=== PATIENT | male | born 1990 | race Caucasian/White ===

== ENCOUNTER 2016-10-25 22:49 | Emergency (ER) | payer MEDICAID | END 2016-10-26 02:30 | disposition home or self-care (01) | LOC: D.ER 22:49 | DX: S93.402A Sprain of unspecified ligament of left ankle, initial encounter (principal); X58.XXXA Exposure to other specified factors, initial encounter; Y93.89 Activity, other specified; Y92.89 Other specified places as the place of occurrence of the external cause; M79.672 Pain in left foot ==

== ENCOUNTER 2017-11-19 20:45 | Emergency (ER) | payer MEDICAID ==
[~2017-11-19] VITALS: Ht 177.8 cm; Wt 59.1 kg
[2017-11-19 20:51] VITALS: Ht 177.8 cm; Wt 59.1 kg
[2017-11-19] MEDS ORDERED: TOPAMAX50 MG (20:52)
[2017-11-19] MEDS ORDERED: IMITREX50 MG (20:52)
[2017-11-19 23:07] VITALS: BP 122/73
== END 2017-11-19 23:08 | disposition home or self-care (01) ==
LOC: D.ER 20:45
DX: L42 Pityriasis rosea (principal); Z86.73 Personal history of transient ischemic attack (TIA), and cerebral infarction without residual deficits

== ENCOUNTER 2017-12-25 09:47 | Emergency (ER) | payer MEDICARE, MEDICAID ==
[~2017-12-25] VITALS: Ht 177.8 cm; Wt 72.6 kg
[~2017-12-25 09:47] MED LIST: IMITREX50 MG; TOPAMAX50 MG
[2017-12-25 09:53] VITALS: Ht 177.8 cm; Wt 72.6 kg
[2017-12-25] MEDS ORDERED: CLEOCIN HCL300 MG PO (11:27)
[2017-12-25] MEDS ORDERED: TORADOL10 MG PO (11:27)
[2017-12-25 12:24] VITALS: BP 121/093
[2017-12-25] MEDS ORDERED: TYLENOL W/CODEI1 TAB PO (20:08)
[2017-12-29 13:49] VITALS: Ht 177.8 cm; Wt 72.6 kg
== END 2017-12-25 12:25 | disposition home or self-care (01) ==
LOC: D.ER 09:47
DX: K04.7 Periapical abscess without sinus (principal); K02.9 Dental caries, unspecified; Z86.73 Personal history of transient ischemic attack (TIA), and cerebral infarction without residual deficits; R22.9 Localized swelling, mass and lump, unspecified

== ENCOUNTER 2017-12-25 19:04 | Emergency (ER) | payer MEDICARE, MEDICAID ==
[~2017-12-25] VITALS: Ht 177.8 cm; Wt 72.7 kg
[~2017-12-25 19:04] MED LIST changes: +CLEOCIN HCL300 MG PO; +TORADOL10 MG PO
[2017-12-25 19:08] VITALS: Ht 177.8 cm; Wt 72.7 kg
[2017-12-25] MEDS ORDERED: TYLENOL W/CODEI1 TAB PO (20:08)
[2017-12-25 20:20] VITALS: BP 144/92
[2017-12-29 13:49] VITALS: Ht 177.8 cm; Wt 72.7 kg
== END 2017-12-25 20:20 | disposition home or self-care (01) ==
LOC: D.ER 19:04
DX: K04.7 Periapical abscess without sinus (principal); Z86.73 Personal history of transient ischemic attack (TIA), and cerebral infarction without residual deficits

== ENCOUNTER 2017-12-27 11:03 | Inpatient (IN) | payer MEDICARE, MEDICAID ==
[~2017-12-27] VITALS: Ht 177.8 cm; Wt 73.9 kg
--- NOTE | ~2017-12-27 | MORECARE ---
CASE MANAGEMENT DISCHARGE SUMMARY PATIENT: MERRICK ALLEN UNIT: [id number] ADM DATE: 12/27/17 AGE: 27 : 89 SEX: M ROOM/BED: D.1213 AUTHOR: SHERRIE ECHEVARRIA PHYSICIAN: REFERRING PHYSICIAN: HAIDER GODINEZ MD DATE OF SERVICE: 12/29/17 Discharge Plan Patient Name: MERRICK ALLEN Facility: [facility]:[place] : 1990 Planned Disposition: Home Anticipated Discharge Date: Discharge Date: 12/29/2017 Expected LOS: Initial Reviewer: [id number] Initial Review Date: 12/27/2017 Generated: 12/29/17 4:31 pm Comments DCP- Discharge Planning Updated by [email or web address]: Rosalva Marcus on 12/29/17 11:[address] Patient Name: MERRICK ALLEN Admission Status: ER Accout number: [id number] Admission Date: 12-27-2017 : 1990 Admission Diagnosis:PERIAPICAL ABSCESS WITHOUT SINUS Attending: HAIDER GODINEZ Current LOS: 2 Anticipated DC Date: Planned Disposition: Home Primary Insurance: [employer] ADV Discharge Planning Comments: CM met with patient at bedside. Patient alone at this time his mother is at work. Patient plans on returning to his home with his mother. IMM explained and signed 12/29/17 @1157 Patient denies any discharge needs at this time. CM will continue to follow and assist as needed with discharge planning / needs. Tie Mill Operator: Rosalva Marcus Coverage Notice Reviewer: [id number] - Rosalva Marcus Notice Issued Date-Time: 12/29/2017 11:57 Notice Type: IM Discharge Notice Notice Delivered To: Patient Relationship to Patient: Self Casserole Preparer Name: Delivery Method: HAND - Hand Delivered Sharlene Days: Prior Verbal Notification: Recipient Understood Notice: Yes Recipient Signature: Yes Med Rec Note Co-signed by Attending: Coverage Notice Comment: Last DP export: 12/29/17 11:10 a Patient Name: MERRICK ALLEN Page [id number] at 1531 All edits/amendments must be made on the electronic document DICTATION DATE: 12/29/17 1530 PLATE DRILLER: DM 12/29/17 1530 RPT#: [id number] DC DATE:12/29/17 STATUS: DIS IN [facility] [address] [place] [address] END OF REPORT
--- NOTE | ~2017-12-27 | MORECARE ---
CASE MANAGEMENT DISCHARGE SUMMARY PATIENT: MERRICK ALLEN UNIT: [id number] ADM DATE: 12/27/17 AGE: 27 : 90 SEX: M ROOM/BED: D.1213 AUTHOR: SHERRIE ECHEVARRIA PHYSICIAN: REFERRING PHYSICIAN: HAIDER GODINEZ MD DATE OF SERVICE: 12/29/17 Discharge Plan Patient Name: MERRICK ALLEN Facility: [facility]:[place] : 1990 Planned Disposition: Home Anticipated Discharge Date: Discharge Date: 12/29/2017 Expected LOS: Initial Reviewer: [email or web address] Initial Review Date: 12/27/2017 Generated: 12/29/17 4:40 pm Comments DCP- Discharge Planning Updated by [email or web address]: Rosalva Marcus on 12/29/17 11:[address] Patient Name: MERRICK ALLEN Admission Status: ER Accout number: [id number] Admission Date: 12-27-2017 : 1990 Admission Diagnosis:PERIAPICAL ABSCESS WITHOUT SINUS Attending: HAIDER GODINEZ Current LOS: 2 Anticipated DC Date: Planned Disposition: Home Primary Insurance: [employer] ADV Discharge Planning Comments: CM met with patient at bedside. Patient alone at this time his mother is at work. Patient plans on returning to his home with his mother. IMM explained and signed 12/29/17 @1157 Patient denies any discharge needs at this time. CM will continue to follow and assist as needed with discharge planning / needs. Manager Route: Rosalva Marcus Coverage Notice Reviewer: [id number] - Rosalva Marcus Notice Issued Date-Time: 12/29/2017 11:57 Notice Type: IM Discharge Notice Notice Delivered To: Patient Relationship to Patient: Self Java Software Name: Delivery Method: HAND - Hand Delivered Sharlene Days: Prior Verbal Notification: Recipient Understood Notice: Yes Recipient Signature: Yes Med Rec Note Co-signed by Attending: Coverage Notice Comment: Last DP export: 12/29/17 11:10 a Patient Name: MERRICK ALLEN Page [id number] at 1540 All edits/amendments must be made on the electronic document DICTATION DATE: 12/29/17 1540 EDUCATIONAL ADMINISTRATION TEACHER: DM 12/29/17 1540 RPT#: [id number] DC DATE:12/29/17 STATUS: DIS IN [facility] [address] [place] [address] END OF REPORT
--- NOTE | ~2017-12-27 | MORECARE ---
CASE MANAGEMENT DISCHARGE SUMMARY PATIENT: MERRICK ALLEN UNIT: [id number] ADM DATE: 12/27/17 AGE: 27 : 90 SEX: M ROOM/BED: D.1213 AUTHOR: SHERRIE ECHEVARRIA PHYSICIAN: REFERRING PHYSICIAN: HAIDER GODINEZ MD DATE OF SERVICE: 12/29/17 Discharge Plan Patient Name: MERRICK ALLEN Facility: [facility]:[place] : 1990 Planned Disposition: Home Anticipated Discharge Date: Discharge Date: Expected LOS: Initial Reviewer: [email or web address] Initial Review Date: 12/27/2017 Generated: 12/29/17 1:10 pm Comments DCP- Discharge Planning Updated by [id number]: Rosalva Marcus on 12/29/17 11:[address] Patient Name: MERRICK ALLEN Admission Status: ER Accout number: [id number] Admission Date: 12-27-2017 : 1990 Admission Diagnosis:PERIAPICAL ABSCESS WITHOUT SINUS Attending: HAIDER GODINEZ Current LOS: 2 Anticipated DC Date: Planned Disposition: Home Primary Insurance: [employer] ADV Discharge Planning Comments: CM met with patient at bedside. Patient alone at this time his mother is at work. Patient plans on returning to his home with his mother. IMM explained and signed 12/29/17 @1157 Patient denies any discharge needs at this time. CM will continue to follow and assist as needed with discharge planning / needs. Trimmer And Reinforcer: Rosalva Marcus Coverage Notice Reviewer: [id number] - Rosalva Marcus Notice Issued Date-Time: 12/29/2017 11:57 Notice Type: IM Discharge Notice Notice Delivered To: Patient Relationship to Patient: Self Tablet Making Machine Operator Helper Name: Delivery Method: HAND - Hand Delivered Sharlene Days: Prior Verbal Notification: Recipient Understood Notice: Yes Recipient Signature: Yes Med Rec Note Co-signed by Attending: Coverage Notice Comment: Patient Name: MERRICK ALLEN Page [id number] at 1210 All edits/amendments must be made on the electronic document DICTATION DATE: 12/29/17 1210 STERNMAN: TRACY 12/29/17 1210 RPT#: [id number] [place] DATE: STATUS: ADM IN [facility] [address] [place] [address] END OF REPORT
[~2017-12-27 11:03] MED LIST changes: +TYLENOL W/CODEI1 TAB PO
[2017-12-27 14:32] LABS: BASOPHILS 0.3 % (0-2); EOSINOPHILS 2.1 % (0-7); HEMATOCRIT 46.6 % (42.0-54.0); HEMOGLOBIN 15.6 g/dL (13.5-17.5); IMMATURE GRANULOCYTES 0.2 % (0-5); LYMPHOCYTES 19.6 % (15-50); MCHC 33.5 g/dL (31.0-37.0); MCV 83.5 fL (80.0-100.0); MEAN PLATELET VOLUME 11.8 fL (7.4-10.4); NEUTROPHILS 64.8 % (40-80); PLATELET COUNT 139 10x3/uL (130-400); RBC 5.58 10x6/uL (4.20-6.10); RDW 13.6 % (11.5-14.5); WBC 6.1 10x3/uL (4.8-10.8)
[2017-12-27 14:47] LABS: ALBUMIN 3.6 g/dL (3.4-5.0); ALKALINE PHOSPHATASE 68 U/L (46-116); ALT (SGPT) 23 U/L (10-68); BILIRUBIN - TOTAL 0.28 mg/dL (0.2-1.3); CALC OSMOLALITY 284 mosm/kg (275-300); CALCIUM 9.2 mg/dL (8.5-10.1); CARBON DIOXIDE 26.5 mmol/L (21.0-32.0); CHLORIDE - SERUM 105 mmol/L (98-107); CREATININE - SERUM 1.2 mg/dL (0.6-1.3); GLUCOSE 101 mg/dL (74-106); POTASSIUM - SERUM 3.9 mmol/L (3.5-5.1); PROTEIN - SERUM 7.5 g/dL (6.4-8.2); SODIUM 143 mmol/L (136-145); UREA NITROGEN 12 mg/dL (7-18); eGFR NON AFRICAN AMERICAN 77 mL/min (90-120)
[2017-12-27] MEDS ORDERED: TOPAMAX50 MG PO (20:07)
[2017-12-27 22:17] VITALS: BP 131/85; BMI 23.0
[2017-12-27 23:51] VITALS: BP 118/75
[2017-12-28 04:51] VITALS: BP 128/87
[2017-12-28 06:57] LABS: BASOPHILS 0.2 % (0-2); EOSINOPHILS 4.3 % (0-7); HEMATOCRIT 45.1 % (42.0-54.0); HEMOGLOBIN 15.1 g/dL (13.5-17.5); IMMATURE GRANULOCYTES 0.2 % (0-5); LYMPHOCYTES 22.6 % (15-50); MCH 27.7 pg (26.0-34.0); MCHC 33.5 g/dL (31.0-37.0); MCV 82.6 fL (80.0-100.0); MEAN PLATELET VOLUME 12.5 fL (7.4-10.4); MONOCYTES 9.1 % (2-11); NEUTROPHILS 63.6 % (40-80); PLATELET COUNT 154 10x3/uL (130-400); RBC 5.46 10x6/uL (4.20-6.10); RDW 13.9 % (11.5-14.5); WBC 4.6 10x3/uL (4.8-10.8)
[2017-12-28 07:10] LABS: ALBUMIN 3.1 g/dL (3.4-5.0); ALKALINE PHOSPHATASE 57 U/L (46-116); ALT (SGPT) 19 U/L (10-68); BILIRUBIN - TOTAL 0.48 mg/dL (0.2-1.3); CALC OSMOLALITY 279 mosm/kg (275-300); CALCIUM 8.5 mg/dL (8.5-10.1); CARBON DIOXIDE 25.4 mmol/L (21.0-32.0); CHLORIDE - SERUM 107 mmol/L (98-107); CREATININE - SERUM 1.2 mg/dL (0.6-1.3); GLUCOSE 101 mg/dL (74-106); POTASSIUM - SERUM 3.8 mmol/L (3.5-5.1); PROTEIN - SERUM 6.7 g/dL (6.4-8.2); SODIUM 141 mmol/L (136-145); UREA NITROGEN 9 mg/dL (7-18); eGFR NON AFRICAN AMERICAN 77 mL/min (90-120)
[2017-12-28 07:49] VITALS: BP 137/87
[2017-12-28 08:00] VITALS: BP 122/78
[2017-12-28 12:43] VITALS: BP 133/90
[2017-12-28 16:09] VITALS: BP 123/81
[2017-12-29 01:44] VITALS: BP 122/82
[2017-12-29 03:19] LABS: BASOPHILS 0.2 % (0-2); EOSINOPHILS 3.6 % (0-7); HEMATOCRIT 42.7 % (42.0-54.0); HEMOGLOBIN 14.2 g/dL (13.5-17.5); IMMATURE GRANULOCYTES 0.2 % (0-5); LYMPHOCYTES 22.7 % (15-50); MCH 27.7 pg (26.0-34.0); MCHC 33.3 g/dL (31.0-37.0); MCV 83.4 fL (80.0-100.0); MEAN PLATELET VOLUME 11.5 fL (7.4-10.4); MONOCYTES 12.4 % (2-11); NEUTROPHILS 60.9 % (40-80); PLATELET COUNT 152 10x3/uL (130-400); RBC 5.12 10x6/uL (4.20-6.10); RDW 13.5 % (11.5-14.5); WBC 5.3 10x3/uL (4.8-10.8)
[2017-12-29 03:21] LABS: ALBUMIN 2.9 g/dL (3.4-5.0); ALKALINE PHOSPHATASE 60 U/L (46-116); ALT (SGPT) 19 U/L (10-68); BILIRUBIN - TOTAL 0.31 mg/dL (0.2-1.3); CALC OSMOLALITY 280 mosm/kg (275-300); CALCIUM 8.5 mg/dL (8.5-10.1); CARBON DIOXIDE 27.6 mmol/L (21.0-32.0); CHLORIDE - SERUM 109 mmol/L (98-107); CREATININE - SERUM 1.2 mg/dL (0.6-1.3); GLUCOSE 108 mg/dL (74-106); PROTEIN - SERUM 6.4 g/dL (6.4-8.2); SODIUM 141 mmol/L (136-145); UREA NITROGEN 11 mg/dL (7-18); eGFR NON AFRICAN AMERICAN 77 mL/min (90-120)
[2017-12-29 03:22] LABS: POTASSIUM - SERUM 4.6 mmol/L (3.5-5.1)
[2017-12-29 08:04] VITALS: BP 136/89
[2017-12-29] MEDS ORDERED: FLORAJEN3 CAPS460 MG PO (11:03)
[2017-12-29] MEDS ORDERED: CLEOCIN HCL300 MG PO ×2 (11:03→13:08)
[2017-12-29 12:03] VITALS: BP 121/76
[2017-12-29] MEDS ORDERED: AUGMENTIN 875-11 TAB PO (13:09)
[2017-12-29 13:49] VITALS: Ht 177.8 cm; Wt 73.9 kg
[2017-12-29] MEDS ORDERED: MONODOX100 MG PO (14:02)
== END 2017-12-29 14:45 | disposition home or self-care (01) | DRG 159 ==
LOC: D.ER 11:03 → D.M3 15:46 → D.EDHOLD 15:46 → D.M3 19:33
PROVIDERS: Family Medicine
DX: K04.7 Periapical abscess without sinus (principal); L42 Pityriasis rosea; K02.9 Dental caries, unspecified; Z86.73 Personal history of transient ischemic attack (TIA), and cerebral infarction without residual deficits

== ENCOUNTER 2019-07-12 23:16 | Emergency (ER) | payer MEDICARE, MEDICAID ==
[~2019-07-12] VITALS: Ht 177.8 cm; Wt 56.8 kg
[~2019-07-12 23:16] MED LIST changes: +AUGMENTIN 875-11 TAB PO; +FLORAJEN3 CAPS460 MG PO; +MONODOX100 MG PO; +TOPAMAX50 MG PO
[2019-07-12 23:43] VITALS: Ht 177.8 cm; Wt 56.8 kg
[2019-07-13 00:46] VITALS: BP 128/90
== END 2019-07-13 00:48 | disposition home or self-care (01) ==
LOC: D.ER 23:16
DX: S61.215A Laceration without foreign body of left ring finger without damage to nail, initial encounter (principal); S61.012A Laceration without foreign body of left thumb without damage to nail, initial encounter; W26.8XXA Contact with other sharp object(s), not elsewhere classified, initial encounter; Y93.9 Activity, unspecified; Y92.9 Unspecified place or not applicable; Z86.73 Personal history of transient ischemic attack (TIA), and cerebral infarction without residual deficits

== ENCOUNTER 2019-07-22 10:22 | Emergency (ER) | payer MEDICARE, MEDICAID ==
[~2019-07-22] VITALS: Ht 177.8 cm; Wt 61.4 kg
[2019-07-22 10:29] VITALS: Ht 177.8 cm; Wt 61.4 kg
[2019-07-22] MEDS ORDERED: KEFLEX500 MG PO (10:31)
[2019-07-22] MEDS ORDERED: GABAPENTIN100 MG PO ×2 (10:31)
[2019-07-22 12:44] VITALS: BP 134/89
== END 2019-07-22 12:44 | disposition home or self-care (01) ==
LOC: D.ER 10:22
DX: Z48.02 Encounter for removal of sutures (principal)